=== PATIENT | female | born 1940 | race Caucasian/White ===

== ENCOUNTER 2020-10-15 11:25 | Day surgery (SDC) | payer MEDICARE, OTHER ==
[~2020-10-15] VITALS: Ht 167.6 cm; Wt 63.1 kg
[~2020-10-15 11:25] MED LIST: LEVO88TA2 PO; OLME5TAB6 PO
[2020-10-15] MEDS ORDERED: MELA3TAB31 PO (12:24)
[2020-10-15] MEDS ORDERED: LIPITOR PO (12:24)
[2020-10-15] MEDS ORDERED: ASPI81TA45 PO (12:24)
[2020-10-15] MEDS ORDERED: LACTATED RINGERS 1,000 ML IV SCH (12:30)
[2020-10-15] MEDS ORDERED: CHLORHEXIDINE 15 ML UDC MM ONE (12:30)
[2020-10-15 12:31] VITALS: BP 146/83
[2020-10-15] MEDS ORDERED: CHLORHEXIDINE 15 ML UDC ONE (12:38)
[2020-10-15] MEDS ORDERED: PROPOFOL 50 ML ONE (13:02)
[2020-10-15 13:07] LABS: ALANINE AMINOTRANSFERASE 20 U/L (12-78); ALBUMIN 3.2 g/dL (3.4-5.0); ANION GAP 7 mmol/L (5-15); CALCIUM 9.1 mg/dL (8.5-10.1); CHLORIDE 108 mmol/L (98-107); CREATININE 1.03 mg/dL (0.55-1.02)
[2020-10-15 13:09] LABS: ALKALINE PHOSPHATASE 122 U/L (45-117); BILIRUBIN,TOTAL 0.5 mg/dL (0.2-1.0); TOTAL PROTEIN 8.6 g/dL (6.4-8.2)
[2020-10-15] MEDS ORDERED: CEFAZOLIN 1,000 MG ONE (13:09)
== END 2020-10-15 13:10 | disposition home or self-care (01) ==
LOC: OUT 11:25
PROVIDERS: ATTEND Internal Medicine
DX: K86.2 Cyst of pancreas (principal); K44.9 Diaphragmatic hernia without obstruction or gangrene; E03.9 Hypothyroidism, unspecified; E78.5 Hyperlipidemia, unspecified; I10 Essential (primary) hypertension; Z20.822 Contact with and (suspected) exposure to COVID-19; Z79.82 Long term (current) use of aspirin; Z79.890 Hormone replacement therapy; Z79.899 Other long term (current) drug therapy; Z85.118 Personal history of other malignant neoplasm of bronchus and lung
CPT/HCPCS: 36415; 43242; 80053; 82150; 82378; 87635; 88173; 93005; J0690; J2704; J7120